=== PATIENT | female | born 2000 | race Caucasian/White ===

== ENCOUNTER 2023-01-23 12:28 | Emergency (ER) | payer OTHER ==
[~2023-01-23] VITALS: Ht 175.3 cm; Wt 56.7 kg
[2023-01-23] MEDS ORDERED: TOPIRAMATE50 MG (13:38)
[2023-01-23] MEDS ORDERED: LORAZEPAM1 MG PO (13:38)
[2023-01-23] MEDS ORDERED: RIZATRIPTAN10 MG PO (13:38)
[2023-01-23] MEDS ORDERED: ARIPIPRAZOLE5 MG PO (13:39)
== END 2023-01-23 13:59 | disposition home or self-care (01) ==
LOC: ER 12:28
DX: F41.9 Anxiety disorder, unspecified (principal)